=== PATIENT | female | born 1960 | race Caucasian/White ===

== ENCOUNTER 2025-03-10 19:16 | Emergency (ER) | payer BC, SELFPAY ==
[2025-03-10 19:19] VITALS: BP 186/95; PULSE 86; RESP 16; TEMP 36.9; O2SAT 98
[2025-03-10] MEDS: Diph,Pertuss(Acell),Tet Vac/Pf 0.5 ML SYR IM (20:23)
[2025-03-10 20:37] VITALS: BP 186/95; PULSE 86; RESP 16; TEMP 36.9; O2SAT 98
--- NOTE | 2025-03-10 21:41 | ED.GENADUL_ITS ---
Discharge Plan Disposition Patient Disposition: Home Discharge Details Clinical Impression: Facial laceration, Contusion of face Primary Care Provider: Patricia,Local ED Provider: Matilde Valentin Home Meds and New Rx's Prescriptions: No Action No Known Home Meds Discharge Instructions Instructions: Laceration Repair With Stitches ED Additional Instructions: Please have your sutures removed in 5 to 7 days wash with soap and water twice daily and apply neosporin after apply vitamin E oil after sutures removed We spoke regarding imaging of your head, you have declined If you develop a worsening headache, vision change, personality change, please return for reassessment Discharge Data Discharge Date/Time-TO BE ENTERED AT DEPARTURE: 03/10/25 20:38 HPI General Date/Time Provider Initiated Documentation: 03/10/25 19:22 . HPI Narrative: This 64-year-old female presents after a window fell down onto her face. She states this occurred 4 hours prior to arrival. She is unsure regarding her last tetanus shot. She denies any loss of consciousness. She does have a headache she states it was relieved with Tylenol initially. She states the headache is returning she denies nausea vomiting or history of coagulopathy. She denies any neck pain. She has any strength or sensation changes distally or dizziness. Related Data Home Medications ?Medication ?Instructions ?Recorded ?Confirmed Unknown [No Known Home Meds] 03/10/25 0 03/10/25 Allergies Allergy/AdvReac Type Severity Reaction Status Date / Time No Known Allergies Allergy Unverified 03/10/25 19:21 General Stated Complaint: Laceration TIMUR: 4 Exam Narrative Exam Narrative: Alert and oriented 64-year-old female in no acute distress pupils equal round reactive to light and accommodation no cervical spine tenderness laceration approximately 6 mm noted as a flap above the upper lip, no evidence of intraoral trauma aside from a small abrasion over the upper gumline, GCS 15 ambulatory s teady gait Course Vital Signs Vital signs: Vital Signs Temperature 36.9 C 03/10/25 19:19 Pulse 86 03/10/25 19:19 Respiratory Rate 16 03/10/25 19:19 Blood Pressure 186/95 H 03/10/25 19:19 Pulse Oximetry 98 03/10/25 19:19 Temperature 36.9 C 03/10/25 20:37 Pulse 86 03/10/25 20:37 Respiratory Rate 16 03/10/25 20:37 Blood Pressure 186/95 H 03/10/25 20:37 Pulse Oximetry 98 03/10/25 20:37 Pain Level 2 03/10/25 19:19 Procedure Laceration Laceration 1: Date of Procedure: 03/10/25 Time of procedure: 21:45 Provider that performed the procedure: Matilde Feng Time Out Performed: Yes Patient Consented: Verbally Site: lip Description: flap Depth: simple, single layer Local anesthetic: Lidocaine 1% and with Epi Amount of anesthesia used (mL): 3 Pre-repair:: wound margins revised Skin layer closed with: nylon Number of sutures:: 3 Technique: simple, interrupted Medical Decision Making Assessment and plan: Patient with head injury with headache, she has declined a head CT she understands the risks associated with her decision. She initially declined Tdap however I encouraged her that this will also has pertussis coverage and she is finally agreeable to this vaccination. The sutures will need to be removed in 5 to 7 days. She tolerated procedure without incident and coagulation was achieved. She remains neurologically intact alert, oriented, decisional capacity. A normal ll conversations had in the presence of patient's in the room as well. [facility] All Active Problems (Updated 03/10/25 @ 20:20 by LOGAN Moore) Contusion of face (Acute) Facial laceration (Acute) Social History Smoking risk assessment performed?: No Alcohol Intake: current Alcohol Intake frequency: holidays/special occasions only Substance use type: does not use Housing: house Do you feel safe at home: Yes Do you feel safe in your relationship?: Yes
== END 2025-03-10 20:38 | disposition home or self-care (01) ==
LOC: ER 20:47
PROVIDERS: Emergency Provider Physician Assistant
DX: S01.81XA Laceration without foreign body of other part of head, initial encounter (principal); S00.83XA Contusion of other part of head, initial encounter; Z23 Encounter for immunization; W22.8XXA Striking against or struck by other objects, initial encounter
CPT/HCPCS: 12011; 90471; 90715; 99284; 99283

== ENCOUNTER 2025-03-16 15:51 | Emergency (ER) | payer BC, SELFPAY ==
[2025-03-16 15:58] VITALS: BP 134/85; PULSE 72; RESP 20; TEMP 36.9; O2SAT 97
--- NOTE | 2025-03-16 16:03 | W.ED.GENAD ---
Discharge Plan Disposition Patient Disposition: Home Condition: Stable Discharge Details Clinical Impression: Encounter for removal of sutures Primary Care Provider: Patricia,Local ED Provider: Bijal Polo Home Meds and New Rx's Prescriptions: No Action No Known Home Meds Discharge Instructions Instructions: Stitches Removal Additional Instructions: You were seen in the emergency department today for evaluation for suture removal. In our department you had 3 sutures removed, your wound is healing up nicely. Please give it another 3 to 5 days to finish healing before you start using vitamin E ointment and scar massage. The red skin changes directly in the area of the suture should improve slowly over time. Please continue to use sun protection to minimize scarring. Please follow-up with your primary care provider in the next few days to discuss this visit and any symptoms that change, worsen, or persist. Thank you for allowing us to be part of your care. HPI General Mode of arrival: ambulatory. Date/Time Provider Initiated Documentation: 03/16/25 15:53. Limitations to Documentation: no limitations. Information obtained by: patient and old records reviewed. HPI Narrative: This is a 64-year-old female patient presenting for evaluation for suture removal. The patient was seen in our emergency department 6 days ago after sustaining a laceration to her upper lip from a window. At that time she had 3 sutures placed, states that she has been healing up as expected though she did notice some bubbles on the ends of the laceration which she attributed to the antibiotic ointment. She states that she has not had unmanageable pain, and is otherwise in her normal state of health without acute complaints. Related Data Home Medications ?Medication ?Instructions ?Recorded ?Confirmed Unknown [No Known Home Meds] 03/10/25 03/10/25 Allergies Allergy/AdvReac Type Severity Reaction Status Date / Time No Known Allergies Allergy Unverified 03/10/25 19:21 General TIMUR: 4 Exam Narrative Exam Narrative: Gen: Awake and alert, in no apparent distress HEENT: Non-icteric sclera, 1 cm laceration of the upper lip is well-healing and well-approximated with 3 Prolene sutures noted. There is a small amount of redness consistent with normal wound healing immediately surrounding the laceration, no induration, warmth, fluctuance or drainage Neck: Supple Lungs: No apparent respiratory distress, normal respiratory effort. CV: Appears well perfused Abdomen: Non-distended MSK: Moves 4 extremities without apparent limitation in ROM Skin: Visualized skin without rashes, cyanosis. Neuro: Normal Gait, no obvious focal deficits or facial asymmetry. Speaks in full, clear sentences. Psych: Appropriate for situation. Medical Decision Making This is a 64-year-old female patient presenting for suture removal. My differential includes normally healing wound, no evidence for wound infection such as cellulitis or abscess. No evidence of wound dehiscence. 3 Prolene sutures were removed by this provider in their entirety, patient tolerated the procedure well without immediate adverse event. I did director of group counseling program her on scar minimization techniques, including sun protection, vitamin E ointment and scar massage after fully healed. At this time, the patient has had a full medical evaluation and is safe for discharge to home. They are hemodynamically stable, ambulatory, and tolerating PO. They are understanding of the follow-up plan and return precautions. They left our facility without incident. Bijal Polo MD [facility] All Active Problems (Updated 03/16/25 @ 16:04 by Bijal Polo MD) Encounter for removal of sutures (Acute) Contusion of face (Acute) Facial laceration (Acute) Social History Smoking risk assessment performed?: No Alcohol Intake: current Alcohol Intake frequency: holidays/special occasions only Substance use type: does not use Housing: house Do you feel safe at home: Yes Do you feel safe in your relationship?: Yes
== END 2025-03-16 16:09 | disposition home or self-care (01) ==
PROVIDERS: Emergency Provider Emergency Medicine
DX: Z48.02 Encounter for removal of sutures (principal)